=== PATIENT | male | born 1935 | race Hispanic/Latino ===

== ENCOUNTER 2021-05-03 14:52 | Emergency (ER) | payer OTHER | END 2021-05-03 15:42 | disposition left against medical advice (07) | LOC: EDH 14:52 | DX: R79.89 Other specified abnormal findings of blood chemistry (principal); Z53.21 Procedure and treatment not carried out due to patient leaving prior to being seen by health care provider ==

== ENCOUNTER 2022-09-09 16:30 | Inpatient (IN) | payer OTHER ==
[~2022-09-09] VITALS: Ht 185.4 cm; Wt 81.6 kg
[2022-09-09 17:04] LABS: BASOPHILS % (AUTO) 0.4 % (0.0-5.0); EOSINOPHILS % (AUTO) 1.2 % (0.0-8.0); HEMATOCRIT 35.4 % (42-54); LYMPHOCYTES % (AUTO) 14.4 % (21.0-51.0); MEAN CORPUSCULAR HEMOGLOBIN 27.2 pg (27.0-33.0); MEAN CORPUSCULAR HGB CONC 32.5 g/dL (32.0-36.0); MEAN CORPUSCULAR VOLUME 83.7 fL (79-99); NEUTROPHILS % (AUTO) 68.6 % (40.0-77.0); PLATELET COUNT (AUTO) 240 K/uL (130-400); RED BLOOD CELL COUNT(AUTO) 4.23 MIL/uL (4.50-6.20); RED CELL DISTRIBUTION WIDTH 14.6 % (11.0-15.5); WHITE BLOOD COUNT (AUTO) 8.5 K/uL (4.8-10.8)
[2022-09-09 17:18] LABS: CREATININE 0.9 mg/dL (0.5-1.5); POTASSIUM 4.2 mmol/L (3.5-5.1)
[2022-09-09 17:25] LABS: ALBUMIN 3.4 g/dL (3.5-5.0)
[2022-09-09 17:43] LABS: APPEARANCE,URINE CLEAR (CLEAR); BILIRUBIN,URINE NEGATIVE (NEGATIVE); COLOR,URINE LIGHT-YELLOW (YELLOW); GLUCOSE, URINE (UA) NEGATIVE (NEGATIVE); KETONES,URINE NEGATIVE (NEGATIVE); LEUKOCYTE ESTERASE ,URINE NEGATIVE Leu/uL (NEGATIVE); NITRATE,URINE NEGATIVE (NEGATIVE); OCCULT BLOOD,URINE SMALL (NEGATIVE); PH,URINE 5.5 (5.0-8.0); PROTEIN,URINE NEGATIVE (NEGATIVE); UROBILINOGEN,URINE 0.2 mg/dL (0.2-1.0)
[2022-09-09 17:49] LABS: WBC,URINE 0-1 /HPF (0-1)
[2022-09-09] MEDS ORDERED: IPRATROPIUM/ALBUTEROL SULFATE 3 ML SOLUTION IH ONE (18:00)
[2022-09-09] MEDS ORDERED: DEXTROSE 50%-WATER 50 ML DISP.SYRIN IV PRN (19:00)
[2022-09-09] MEDS ORDERED: NITROGLYCERIN 0.4 MG SL TAB SL PRN (19:00)
[2022-09-09] MEDS ORDERED: ERGOCALCIFEROL (VITAMIN D2) 50,000 UNIT CAPSULE PO ONE (19:00)
[2022-09-09] MEDS ORDERED: ONDANSETRON 4MG INJ IV PRN (19:00)
[2022-09-09] MEDS ORDERED: GLUCAGON 1MG KIT 1 MG ML IM PRN (19:00)
[2022-09-09] MEDS ORDERED: IPRATROPIUM/ALBUTEROL SULFATE 3 ML SOLUTION IH PRN (19:00)
[2022-09-09 19:06] LABS: INR 1.03 (0.85-1.15); PROTHROMBIN TIME 11.2 SEC (9.6-11.6)
[2022-09-09 19:07] LABS: PARTIAL THROMBOPLASTIN TIME 37.6 SEC (26.3-35.5)
[2022-09-09 19:09] LABS: HEMOGLOBIN A1C 6.2 % (4.0-6.0)
[2022-09-09 19:28] LABS: CRP QUANTITATIVE 96.4 mg/L (0.00-9.0); MAGNESIUM 1.8 mg/dL (1.80-2.40)
[2022-09-09] MEDS ORDERED: ALBUTEROL 0.083% 2.5 MG/3 ML INH IH PRN (19:30)
[2022-09-09] MEDS: FAMOTIDINE 20MG VIAL IV SCH (20:09)
[2022-09-09] MEDS: AMP/SULBAC 3GM+NS 100ML 100 ML IV SCH (20:09)
[2022-09-09] MEDS: DEXAMETHASONE SOD PHOSPHATE 4 MG/ML 1ML VIAL IVP SCH (20:09)
[2022-09-09] MEDS: 0.9%NACL 1000ML 1,000 ML IV SCH (20:09)
[2022-09-09] MEDS: ACETYLCYSTEINE 600 MG CAPSULE PO SCH (20:09)
[2022-09-09] MEDS ORDERED: IOHEXOL 350 MG/ML 100ML INFUS..BTL IV ONE (20:45)
[2022-09-09] MEDS: ALBUTEROL 0.083% 2.5 MG/3 ML INH IH SCH (21:59)
[2022-09-09] MEDS ORDERED: IPRATROPIUM/ALBUTEROL SULFATE 3 ML SOLUTION IH SCH (22:00)
[2022-09-09] MEDS ORDERED: SODIUM CHLORIDE 3% FOR INHALATION 4 ML/AMP VIAL.NEB IH ONE (22:19)
[2022-09-09] MEDS: AZITHROMYCIN 500MG+NS 250ML 250 ML IV SCH (22:49)
[2022-09-10] MEDS: AMP/SULBAC 3GM+NS 100ML 100 ML IV SCH ×4 (00:23→17:19)
[2022-09-10 00:27] VITALS: BP 142/82
[2022-09-10] MEDS ORDERED: FAMO20TA8 PO (01:05)
[2022-09-10] MEDS ORDERED: METF-444 PO (01:05)
[2022-09-10] MEDS ORDERED: TAMS-1 PO (01:05)
[2022-09-10] MEDS ORDERED: AZIT250T PO (01:05)
[2022-09-10] MEDS: ALBUTEROL 0.083% 2.5 MG/3 ML INH IH SCH ×5 (03:42→19:06)
[2022-09-10 04:37] VITALS: BP 140/80
[2022-09-10] MEDS: INSULIN HUMULIN R 100 UNIT/ML 3ML SQ SCH ×4 (05:45→16:21)
[2022-09-10 06:12] LABS: BASOPHILS % (AUTO) 0.2 % (0.0-5.0); HEMATOCRIT 35.4 % (42-54); LYMPHOCYTES % (AUTO) 5.1 % (21.0-51.0); MEAN CORPUSCULAR HGB CONC 32.5 g/dL (32.0-36.0); MEAN CORPUSCULAR VOLUME 83.1 fL (79-99); MONOCYTES % (AUTO) 6.4 % (3.0-13.0); NEUTROPHILS % (AUTO) 87.8 % (40.0-77.0); PLATELET COUNT (AUTO) 257 K/uL (130-400); RED BLOOD CELL COUNT(AUTO) 4.26 MIL/uL (4.50-6.20); RED CELL DISTRIBUTION WIDTH 14.6 % (11.0-15.5); WHITE BLOOD COUNT (AUTO) 6.4 K/uL (4.8-10.8)
[2022-09-10 06:48] LABS: ALBUMIN 3.1 g/dL (3.5-5.0); CREATININE 0.9 mg/dL (0.5-1.5); POTASSIUM 3.8 mmol/L (3.5-5.1); TOTAL PROTEIN, SERUM 6.9 g/dL (6.0-8.3)
[2022-09-10 08:00] VITALS: BP 130/71
[2022-09-10] MEDS ORDERED: ZINC SULFATE 220 CAPSULE PO SCH (09:00)
[2022-09-10] MEDS ORDERED: ASCORBIC ACID 500 MG TAB PO SCH (09:00)
[2022-09-10] MEDS: ENOXAPARIN SODIUM 40 MG/0.4 ML SYRINGE SQ SCH ×2 (09:00→09:33)
[2022-09-10] MEDS: ACETYLCYSTEINE 600 MG CAPSULE PO SCH (09:32)
[2022-09-10] MEDS: FAMOTIDINE 20MG VIAL IV SCH (09:33)
[2022-09-10] MEDS: 0.9%NACL 1000ML 1,000 ML IV SCH (09:35)
[2022-09-10 11:42] VITALS: BP 104/57
[2022-09-10 12:15] VITALS: BP 119/54
[2022-09-10] MEDS ORDERED: GUAIFENESIN SUGAR-FREE 100 MG/5 ML UDCUP PO PRN (13:00)
[2022-09-10] MEDS ORDERED: LACTULOSE 20 GM/30 ML UDCUP PO PRN (13:00)
[2022-09-10 16:00] VITALS: BP 127/81
[2022-09-10] MEDS ORDERED: IOHEXOL 350 MG/ML 100ML INFUS..BTL IV ONE (16:10)
[2022-09-10] MEDS: AZITHROMYCIN 500MG+NS 250ML 250 ML IV SCH (17:59)
[2022-09-10] MEDS: DEXAMETHASONE SOD PHOSPHATE 4 MG/ML 1ML VIAL IVP SCH (17:59)
[2022-09-10] MEDS ORDERED: TAMSULOSIN HCL 0.4 MG CAP.ER.24H PO SCH (21:00)
== END 2022-09-10 21:40 | disposition left against medical advice (07) | DRG 871 ==
LOC: EDH 16:30 → EDHIP 16:31 → 3CH 22:03
PROVIDERS: ADMIT Family Medicine; ATTEND Family Medicine
DX: A41.89 Other specified sepsis (principal); J12.82 Pneumonia due to coronavirus disease 2019; J96.91 Respiratory failure, unspecified with hypoxia; U07.1 COVID-19; E44.1 Mild protein-calorie malnutrition; E11.9 Type 2 diabetes mellitus without complications; E78.00 Pure hypercholesterolemia, unspecified; I10 Essential (primary) hypertension; J04.0 Acute laryngitis; K29.70 Gastritis, unspecified, without bleeding; N40.0 Benign prostatic hyperplasia without lower urinary tract symptoms; Z78.9 Other specified health status; Z87.891 Personal history of nicotine dependence; Z68.23 Body mass index [BMI] 23.0-23.9, adult
CPT/HCPCS: 36415; 71045; 71270; 80053; 81001; 82550; 82728; 82948; 83036; 83605; 83615; 83735; 83874; 84145; 84484; 85025; 85378; 85610; 85730; 86140; 87040; 87071; 87205; 87635; 87804; 87880; 93005; 94640; 94664; 94667; C9803; G0378; J0295; J0456; J1100; J1650; J3490; Q9967